=== PATIENT | male | born 1995 | race Caucasian/White ===

== ENCOUNTER 2020-06-27 08:34 | Emergency (ER) | payer OTHER ==
[~2020-06-27] VITALS: Ht 170.2 cm; Wt 58.9 kg
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
[2020-06-27] MEDS ORDERED: METHOCARBAMOL 750 MG TABLET ONE (09:15)
[2020-06-27] MEDS ORDERED: OXYcodone/APAP 5/325MG TABLET ONE (09:16)
--- NOTE | 2020-06-27 09:25 | NUR ---
PT TO CT
[2020-06-27] MEDS ORDERED: METHOCARBAMOL 750 MG TABLET PO ONE (09:30)
[2020-06-27] MEDS ORDERED: OXYcodone/APAP 5/325MG TABLET PO ONE (09:30)
--- NOTE | 2020-06-27 09:44 | NUR ---
pt back to room from ct at this time.
[2020-06-27] MEDS ORDERED: NEOSPORIN OINT. PKT 1 PACKET ONE (10:07)
[2020-06-27 10:38] VITALS: BP 111/64
--- NOTE | 2020-06-27 10:38 | NUR ---
pt resting in [facility]. pt's aox4. resps even and unlabored. pt denies any needs or concerns at this time.
--- NOTE | 2020-06-27 11:32 | NUR ---
DISCHARGE INSTRUCTIONS REVIEWED
== END 2020-06-27 11:34 | disposition home or self-care (01) ==
LOC: ED 11:00
DX: S16.1XXA Strain of muscle, fascia and tendon at neck level, initial encounter (principal); S29.012A Strain of muscle and tendon of back wall of thorax, initial encounter; S00.83XA Contusion of other part of head, initial encounter; S40.012A Contusion of left shoulder, initial encounter; S40.011A Contusion of right shoulder, initial encounter; S80.02XA Contusion of left knee, initial encounter; G89.11 Acute pain due to trauma; M25.522 Pain in left elbow; V43.52XA Car driver injured in collision with other type car in traffic accident, initial encounter; Y93.89 Activity, other specified; Y92.488 Other paved roadways as the place of occurrence of the external cause; Y99.8 Other external cause status
CPT/HCPCS: 70450; 71045; 72125; 72128; 99285